=== PATIENT | male | born 1955 | race African-American/Black ===

== ENCOUNTER 2024-09-03 11:27 | Inpatient (IN) | payer MEDICAID, SELFPAY ==
[2024-09-03] VITALS (13 sets, daily range): BP systolic 106–126; BP diastolic 81–94; PULSE 61–90; RESP 14–31; TEMP 36.3–36.7; O2SAT 89–100; BMI 30.4; BMI 29.3
--- NOTE | 2024-09-03 11:59 | RAD_ITS ---
EXAM: XR Chest, 2 Views CLINICAL INDICATION: SOB TECHNIQUE: Frontal and lateral views of the chest. COMPARISON: No relevant prior studies available. FINDINGS: LUNGS AND PLEURAL SPACES: Right pleural effusion. No consolidation. No pneumothorax. HEART: Cardiomegaly without overt failure. MEDIASTINUM: Unremarkable. Normal mediastinal contour. BONES/JOINTS: Unremarkable. No acute fracture. RAD/Chest PA and Lateral IMPRESSION: 1. Cardiomegaly without overt failure. 2. Right pleural effusion. Reading Location[facility]
--- NOTE | 2024-09-03 12:13 | ED.VIS.DYS ---
HPI <ORION Balderas - Last Filed: 09/03/24 14:58> History of Present Illness Chief Complaint: Shortness of Breath Narrative Narrative: Patient presenting today from a SNF due to dyspnea and bilateral lower extremity edema over the last several days. He denies any known history of CHF. He has a PMH of schizophrenia, COPD, CVA, PVD, T2DM, HTN, HLD, and bipolar disorder. He denies recent illness, fevers, chills, chest pain, abdominal pain, nausea, and vomiting. He does have a chronic right-sided facial droop as a result of his stroke. He denies any history of blood clots or recent surgery/travel/immobilization. PFS <ORION Balderas - Last Filed: 09/03/24 14:58> [facility] Medical History Alcohol use with alcohol-induced persisting dementia COPD (chronic obstructive pulmonary disease) PVD (peripheral vascular disease) Type 2 diabetes mellitus with diabetic peripheral angiopathy without gangrene Refractive amblyopia HTN (hypertension) Glaucoma Cardiomyopathy due to drug and external agent Hyperlipidemia Vitamin D deficiency Hydrocele Gastro-esophageal reflux disease without esophagitis Personal history of traumatic brain injury Cannabis abuse Cocaine dependence Alcohol abuse Bipolar disorder Schizoaffective disorder Schizophrenia Transient cerebral ischemic attack, unspecified Home Medications ?Medication ?Instructions ?Recorded ?Last Taken ?Type acetaminophen 325 mg tablet 650 mg PO Q4H PRN fever or pain 09/03/24 Unknown History (Tylenol) albuterol sulfate 90 mcg/actuation 2 puff inhalation Q4H PRN sob 09/03/24 Unknown History aerosol inhaler aluminum-magnesium hydroxide 200 30 ml PO Q6H PRN heartburn 09/03/24 Unknown History mg-200 mg/5 mL oral suspension (MAG-AL) aspirin 81 mg capsule 81 mg PO DAILY prophylaxis 09/03/24 Unknown History atorvastatin 40 mg tablet (Lipitor) 40 mg PO DAILY cholesterol 09/03/24 Unknown History calcium phosphate,dibasic 77 tab PO abnormal labs 09/03/24 Unknown History mg-vitamin D3 400 unit tablet diphenhydramine HCl 25 mg tablet 25 mg PO Q12H PRN PRN anxiety and 09/03/24 Unknown History (Benadryl Allergy) insomnia divalproex 500 mg tablet,delayed 1,000 mg PO DAILY 09/03/24 Unknown History release (Depakote) schizoaffective/bipolar magnesium hydroxide 400 mg/5 mL 30 ml PO BID PRN constipation 09/03/24 Unknown History oral suspension (Milk of Magnesia) olanzapine 20 mg tablet (Zyprexa) 20 mg PO BID schizophrenia 09/03/24 Unknown History paliperidone palmitate 234 mg/1.5 234 mg IM Q30D schizophrenia 09/03/24 Unknown History mL intramuscular syringe (Invega Sustenna) pantoprazole 40 mg tablet,delayed 40 mg PO QHS gerd 09/03/24 Unknown History release (Protonix) Allergy/AdvReac Type Severity Reaction Status Date / Time No Known Allergies Allergy Verified 09/03/24 11:29 Social History Smoking Status: Unknown if ever smoked ROS <ORION Balderas - Last Filed: 09/03/24 14:58> ROS ED Constitutional Constitutional ED: Denies chills or fever(s) Cardiovascular Cardiovascular: Denies chest pain Respiratory/Chest Respiratory/Chest: Reports dyspnea; Denies cough Gastrointestinal Gastrointestinal: Denies abdominal pain, nausea or vomiting Musculoskeletal Musculoskeletal: Denies arthralgias or myalgias Integumentary Denies rash Neurologic Neurologic: Reports weakness; Denies confusion EXAM <ORION Balderas - Last Filed: 09/03/24 14:58> Physical Exam Const Vital Signs: 09/03/24 11:29 09/03/24 11:34 09/03/24 11:59 Temperature 97.9 F 97.9 F Temperature Source Oral Oral Pulse Rate 83 Respiratory Rate 31 H 31 H Respiratory Effort Respiratory Depth Respiratory Pattern Blood Pressure 109/81 H 109/81 H Blood Pressure Mean 90 90 Pulse Ox 89 97 100 Oxygen Delivery Method Room Air Nasal Cannula Nasal Cannula Oxygen Flow Rate (L/min) 2 2 09/03/24 12:07 09/03/24 13:05 09/03/24 14:00 Temperature 98.0 F 98 F Temperature Source Temporal Oral Pulse Rate 61 76 Respiratory Rate 18 14 Respiratory Effort Short of Breath Respiratory Depth Shallow Respiratory Pattern Apnea Blood Pressure 109/81 H 120/94 H Blood Pressure Mean 90 102 Pulse Ox 100 100 Oxygen Delivery Method Nasal Cannula Nasal Cannula Nasal Cannula Oxygen Flow Rate (L/min) 2 2 09/03/24 14:26 09/03/24 15:08 Temperature 98 F 97.4 F L Temperature Source Oral Pulse Rate 80 76 Respiratory Rate 17 15 Respiratory Effort Respiratory Depth Respiratory Pattern Blood Pressure 120/94 H 116/89 H Blood Pressure Mean 102 98 Pulse Ox 100 99 Oxygen Delivery Method Nasal Cannula Oxygen Flow Rate (L/min) 2 Positive well nourished, well developed and no apparent distress General Appearance ED: well developed HEENT Reports normocephalic and head/scalp atraumatic Mouth ED: Yes moist mucous membranes normal Eyes PERRL and EOMs intact bilaterally Neck full ROM and supple Chest Wall inspection of chest normal Resp normal respiratory effort and clear to auscultation bilaterally Cardio regular rate and regular rhythm GI soft to palpation, non-tender, non-distended and no masses Back/Spine normal ROM and normal to inspection Extremity full ROM Extremity Narrative: Patient in [facility], he does have bilateral 1+ pitting edema that is equal to the lower extremities Neuro oriented x3, CN's II-XII intact bilaterally, moves all extremities, no focal motor deficits and no sensory deficits noted Neuro Narrative: Patient is alert and oriented x 3, he is aware that he is in the [place] emergency department Sensorium / Orientation: awake and alert Psych mental status grossly normal and thought process normal Skin no rashes or lesions noted and no wounds <Dr. Fernando Reinoso, DO - Last Filed: 09/03/24 17:15> Physical Exam Const Vital Signs: 09/03/24 11:29 09/03/24 11:34 09/03/24 11:59 Temperature 97.9 F 97.9 F Temperature Source Oral Oral Pulse Rate 83 Respiratory Rate 31 H 31 H Respiratory Effort Respiratory Depth Respiratory Pattern Blood Pressure 109/81 H 109/81 H Blood Pressure Mean 90 90 Pulse Ox 89 97 100 Oxygen Delivery Method Room Air Nasal Cannula Nasal Cannula Oxygen Flow Rate (L/min) 2 2 09/03/24 12:07 09/03/24 13:05 09/03/24 14:00 Temperature 98.0 F 98 F Temperature Source Temporal Oral Pulse Rate 61 76 Respiratory Rate 18 14 Respiratory Effort Short of Breath Respiratory Depth Shallow Respiratory Pattern Apnea Blood Pressure 109/81 H 120/94 H Blood Pressure Mean 90 102 Pulse Ox 100 100 Oxygen Delivery Method Nasal Cannula Nasal Cannula Nasal Cannula Oxygen Flow Rate (L/min) 2 2 09/03/24 14:26 09/03/24 15:08 Temperature 98 F 97.4 F L Temperature Source Oral Pulse Rate 80 76 Respiratory Rate 17 15 Respiratory Effort Respiratory Depth Respiratory Pattern Blood Pressure 120/94 H 116/89 H Blood Pressure Mean 102 98 Pulse Ox 100 99 Oxygen Delivery Method Nasal Cannula Oxygen Flow Rate (L/min) 2 MDM <ORION Balderas - Last Filed: 09/03/24 14:58> [facility] Narrative Medical decision making narrative: Patient presenting today due to shortness of breath and leg edema that has been ongoing for several days. He denies any known history of CHF. He has a low modified Mariposa score and low Wells score, low suspicion for PE. He is somewhat somnolent on exam. His pulse ox dropped to 89% and he was placed on 2 L supplemental O2. CHF workup obtained, his CBC is largely unremarkable, creatinine 1.23, BNP elevated at 4091, initial troponin somewhat elevated at 31, negative delta. UA negative for UTI. Chest x-ray shows cardiomegaly with a right sided pleural effusion. He was given IV Lasix. I will speak with hospitalist for workup given new onset CHF and he will be admitted in stable condition. Lab Data Attestation: I reviewed the patient's lab results. Labs: Laboratory Results - last 24 hr 09/03/24 09/03/24 09/03/24 11:58 13:20 14:10 WBC 4.8 RBC 4.72 Hgb 13.3 Hct 41.7 MCV 88.3 MCH 28.2 MCHC 31.9 L RDW Std Deviation 54.2 H RDW Coeff of Skinny 16.9 H Plt Count 187 MPV 13.5 H Immature Gran % (Auto) 0.200 Neut % (Auto) 47.9 Lymph % (Auto) 41.0 [place] % (Auto) 9.3 Eos % (Auto) 1.2 Baso % (Auto) 0.4 Absolute Neuts (auto) 2.3 Absolute Lymphs (auto) 1.98 Nucleated RBC % 0 Sodium 144 Potassium 4.5 Chloride 112 H Carbon Dioxide 21.4 Anion Gap 10 BUN 25 H Creatinine 1.23 H Estim Creat Clear Calc 68.07 Est GFR (MDRD) Non-Af 63 BUN/Creatinine Ratio 20.0 Glucose 84 Calcium 8.7 Troponin T High Sens 31 H Troponin T Hi Sens 2 Hr 26 H NT pro BNP II 4091 H Urine Color Yellow Urine Clarity Clear Urine pH 5.0 Ur Specific [place] 1.025 Urine Protein 30 H Urine Glucose (UA) Normal Urine Ketones 5 H Urine Occult Blood 10 H Urine Nitrite Negative Urine Bilirubin 1 H Urine Urobilinogen 4 H Ur Leukocyte Esterase Negative Urine RBC 0-5 SEEN Urine WBC 0 SEEN Ur Squamous Epith Cells 0 SEEN Urine Bacteria 0 SEEN Urine Mucus 0 SEEN Radiography X-Ray: Read by ED Physician Diagnostic Testing: Clinical Impression(s) from Imaging Studies Chest X-Ray 09/03/24 11:59 IMPRESSION: 1. Cardiomegaly without overt failure. 2. Right pleural effusion. Reading Location: [facility] EKG Initial EKG: Comments: 72 bpm, normal sinus rhythm, no ST elevation, T wave inversions leads I, V3 through V6 <Dr. Fernando Reinoso, DO - Last Filed: 09/03/24 17:15> MDM History & Record Review Additional record(s) reviewed:: No prior records Lab Data Labs: Laboratory Results - last 24 hr 09/03/24 09/03/24 09/03/24 11:58 13:20 14:10 WBC 4.8 RBC 4.72 Hgb 13.3 Hct 41.7 MCV 88.3 MCH 28.2 MCHC 31.9 L RDW Std Deviation 54.2 H RDW Coeff of Skinny 16.9 H Plt Count 187 MPV 13.5 H Immature Gran % (Auto) 0.200 Neut % (Auto) 47.9 Lymph % (Auto) 41.0 [place] % (Auto) 9.3 Eos % (Auto) 1.2 Baso % (Auto) 0.4 Absolute Neuts (auto) 2.3 Absolute Lymphs (auto) 1.98 Nucleated RBC % 0 Sodium 144 Potassium 4.5 Chloride 112 H Carbon Dioxide 21.4 Anion Gap 10 BUN 25 H Creatinine 1.23 H Estim Creat Clear Calc 68.07 Est GFR (MDRD) Non-Af 63 BUN/Creatinine Ratio 20.0 Glucose 84 Calcium 8.7 Troponin T High Sens 31 H Troponin T Hi Sens 2 Hr 26 H NT pro BNP II 4091 H Urine Color Yellow Urine Clarity Clear Urine pH 5.0 Ur Specific [place] 1.025 Urine Protein 30 H Urine Glucose (UA) Normal Urine Ketones 5 H Urine Occult Blood 10 H Urine Nitrite Negative Urine Bilirubin 1 H Urine Urobilinogen 4 H Ur Leukocyte Esterase Negative Urine RBC 0-5 SEEN Urine WBC 0 SEEN Ur Squamous Epith Cells 0 SEEN Urine Bacteria 0 SEEN Urine Mucus 0 SEEN Radiography Diagnostic Testing: Clinical Impression(s) from Imaging Studies Chest X-Ray 09/03/24 11:59 IMPRESSION: 1. Cardiomegaly without overt failure. 2. Right pleural effusion. Reading Location: [facility] Treatment and Re-Evaluation :: I have personally performed a face to face assessment of the patient and have reviewed the MARYLIN Note. I performed a substantive portion of the visit including all aspects of the following. My bernstein findings include: History: Patient presents with shortness of breath that has been getting worse over the past 2 weeks. Patient states it is gradually getting worse. Patient states nothing makes it better. Patient states nothing makes it worse. Patient denies any fevers or chills. Patient denies any chest pain or cough. Patient denies any sore throat or rhinorrhea. Patient does admit to some increased swelling in his legs. Patient states he feels weak all over. Exam: Vital signs are stable. Patient is afebrile. Patient is in no acute distress. Patient has mild hypoxia with oxygen saturation of 89% on room air. Oral mucosa is pink and moist. Neck is supple. Trachea is midline. There is no JVD. Heart with regular rate and rhythm. Lungs are diminished bilaterally. There is good respiratory effort noted. Abdomen is soft. Bowel sounds are normal. There is no tenderness. Extremities are intact x 4. There is 2+ edema of the lower extremities bilaterally. Cranial nerves II through XII are intact. There are no focal motor or sensory deficits. Medical Decision Making: Differential diagnosis includes congestive heart failure, pneumonia, pneumothorax, electrolyte abnormality, cardiac dysrhythmia, and cardiac ischemia. EKG will be obtained to assess for cardiac dysrhythmia and cardiac ischemia. Chest x-ray will be obtained to assess for congestive heart failure, pneumonia and pneumothorax. CBC will be obtained to assess for leukocytosis and anemia. Basic metabolic profile will be obtained to assess for electrolyte abnormalities and renal function. BNP will be obtained to assess for congestive heart failure. High-sensitivity troponin will be obtained to assess for cardiac ischemia. 2-hour repeat high-sensitivity troponin will be obtained to assess for ongoing cardiac ischemia. EKG was obtained. On my independent interpretation, it shows normal sinus rhythm with a rate of 72. There are no acute ST or T wave changes noted. Chest x-ray was obtained. There are 2 views. On my independent interpretation, there is vascular congestion. There is cardiomegaly noted. There is a right pleural effusion. Radiologist also interpreted the x-rays and agrees. CBC was reviewed and was within normal limits. Basic metabolic profile was reviewed. BUN was 25 and creatinine was 1.23. There are no previous results for comparison. BNP was reviewed and was elevated at 4091. Initial high-sensitivity troponin was reviewed and was slightly elevated at 31. 2-hour repeat high-sensitivity troponin was reviewed and was improved at 26. Urinalysis was reviewed. There is no evidence of urinary tract infection or hematuria. Patient was given a dose of Lasix here. Case was discussed with the hospitalist. She will admit the patient to her service. Patient understood and was agreeable with the plan. All questions were answered. Discharge Plan Dx/Rx/DC Orders Clinical Impression: New onset of congestive heart failure, Hypoxia, Pleural effusion Disposition Disposition: Acute Care Hospital [facility] Discharge Date/Time: 09/03/24 16:04
[2024-09-03 12:23] LABS: Absolute Lymphocyte Count 1.98 X10^3/uL (0.83-4.51); Absolute Neutrophil Count 2.3 X10^3/uL (2.0-7.7); Basophil# 0.02 X10^3/uL; Basophil% 0.4 % (0-1); Eosinophil# 0.06 X10^3/uL; Eosinophils% 1.2 % (0-5); Hematocrit 41.7 % (40-54); Hemoglobin 13.3 g/dL (13.0-16.5); Lymphocyte # 1.98 X10^3/ul (0.83-4.51); Mean Corp Hgb Conc 31.9 g/dL (32-36); Mean Corpuscular Hgb 28.2 pg (27.0-32.0); Mean Corpuscular Volume 88.3 fL (80-94); Mean Platelet Vol. 13.5 fl (6.2-12.0); Monocyte# 0.45 X10^3/uL; Monocyte% 9.3 % (0-10); NRBC Flagged by Analyzer 0 % (0-5); Neutrophil # 2.31 X10^3/uL (2.7-7.7); Neutrophil % 47.9 % (47-70); Platelet Count 187 K/mm3 (150-450); RBC Distribution Width CV 16.9 % (11.6-14.6); RBC Distribution Width SD 54.2 fl (35.1-43.9); Red Blood Count 4.72 M/mm3 (4.6-6.2); White Blood Count 4.8 K/mm3 (4.4-11.0)
--- NOTE | 2024-09-03 12:30 | ED.RN ---
THIS NURSE ATTEMPTED TO REACH [employer]ARRERA REYES, PTS LEGAL GUARDIAN FOR CONSENT. LEFT A GENERIC VOICEMAIL WITHOUT PT INFO TO CALL US BACK FOR LEGAL GUARDIAN PURPOSES.
[2024-09-03 12:48] LABS: Troponin T High Sensitivity 31 ng/L (<=22)
[2024-09-03 13:06] LABS: Anion Gap 10 (5-15); BUN 25 mg/dL (4-19); Calcium,Total 8.7 mg/dL (7.6-11.0); Carbon Dioxide 21.4 mmol/L (21.0-32.0); Chloride 112 mmol/L (98-108); Creatinine, Serum 1.23 mg/dL (0.70-1.20); EST Glomerular Filtration Rate 63 (>60); Estimated Creatinine Clearance 68.07 ml/min (50-250); Glucose 84 mg/dL (70-99); Potassium 4.5 mmol/L (3.3-5.1); Pro- Brain NATRIURETIC PEPTIDE 4091 pg/mL (<=900); Sodium Level 144 mmol/L (133-145)
[2024-09-03 13:25] LABS: Bacteria 0 SEEN /hpf (None Seen); Mucous, Urine 0 SEEN /hpf (<or=2+); Squamous Epithelial Cells - UA 0 SEEN /hpf (0-5); White Blood Cells 0 SEEN /hpf (0-5)
[2024-09-03 13:27] LABS: Color, Urine Yellow (Yellow); Glucose, Dipstick Normal (Normal); Ketone-Dipstick 5 mg/dl (Negative); Leukocyte Esterase-Dipstick Negative /ul (Negative); Nitrite-Dipstick Negative (Negative); Occult Blood-Urine 10 /ul (Negative); Protein-Dipstick 30 mg/dl (Negative); Specific Gravity, Urine 1.025 (1.002-1.030); Urine Clarity Clear (Clear); Urine Urobilinogen 4 mg/dl (Normal)
[2024-09-03 13:46] LABS: Urine Bilirubin Dipstick 1 mg/dL (Negative)
[2024-09-03 13:50] LABS: Red Blood Cells-Urine 0-5 SEEN /hpf (0-5)
[2024-09-03] MEDS: Furosemide 40 MG/4 ML Vial IV (14:24)
[2024-09-03 14:47] LABS: Troponin T High Sens 2 HR 26 ng/L (<=22)
--- NOTE | 2024-09-03 14:55 | ED.RN ---
Rebecca Avelar requesting an update on patient. Rebecca informed patient will be admitted to hospital
--- NOTE | 2024-09-03 15:56 | PCM.HP.STD ---
HPI - General General Date of Admission: 09/03/24 Date of Service: 09/03/24 Chief Complaint: MATA HPI Narrative TOM MOY, is a 69-year-old male history of diabetes, COPD, GERD, CVA, schizophrenia presented to [facility] ED 09/03/2024 for increasing dyspnea and bilateral lower extremity edema over the past several days. No history of CHF that he knows of. Does have chronic right-sided facial droop as result of a previous stroke. Denies any chest pain. In the ED temperature 97.9 with blood pressure 109/81, respiratory rate 31 and patient 89% on room air so patient was placed on 2 L. Chest x-ray with cardiomegaly without overt failure and right-sided pleural effusion. CBC with white blood cell count 4.8 and hemoglobin 13.3, BNP however found to be 4091 and a troponin of 31. BMP shows creatinine of 1.23 without previous values for comparison. Hospitalist contacted for admission for concerns for new onset heart failure. Patient evaluated at bedside, patient somewhat slow to respond but is awake and alert, reports increased shortness of breath and lower extremity edema over the past week with no chest pain, no productive cough, reports some urinary hesitancy without other urinary complaints, ROS otherwise negative. [facility] Medical History Alcohol use with alcohol-induced persisting dementia COPD (chronic obstructive pulmonary disease) PVD (peripheral vascular disease) Type 2 diabetes mellitus with diabetic peripheral angiopathy without gangrene Refractive amblyopia HTN (hypertension) Glaucoma Cardiomyopathy due to drug and external agent Hyperlipidemia Vitamin D deficiency Hydrocele Gastro-esophageal reflux disease without esophagitis Personal history of traumatic brain injury Cannabis abuse Cocaine dependence Alcohol abuse Bipolar disorder Schizoaffective disorder Schizophrenia Transient cerebral ischemic attack, unspecified Home Medications ?Medication ?Instructions ?Recorded ?Last Taken ?Type acetaminophen 325 mg tablet 650 mg PO Q4H PRN fever or pain 09/03/24 Unknown History (Tylenol) albuterol sulfate 90 mcg/actuation 4 puff inhalation Q4H PRN 09/03/24 Unknown History aerosol inhaler (Ventolin HFA) shortness of breath or wheezing aluminum-magnesium hydroxide 200 30 ml PO Q6H PRN heartburn 09/03/24 Unknown History mg-200 mg/5 mL oral suspension (MAG-AL) aspirin 81 mg capsule 81 mg PO DAILY 09/03/24 Unknown History atorvastatin 40 mg tablet (Lipitor) 40 mg PO DAILY 09/03/24 Unknown History calcium phosphate,dibasic 77 tab PO 09/03/24 Unknown History mg-vitamin D3 400 unit tablet diphenhydramine HCl 25 mg tablet 25 mg PO Q12H PRN PRN anxiety and 09/03/24 Unknown History (Benadryl Allergy) insomnia divalproex 500 mg tablet,delayed 1,000 mg PO DAILY 09/03/24 Unknown History release (Depakote) magnesium hydroxide 400 mg/5 mL 30 ml PO BID PRN constipation 09/03/24 Unknown History oral suspension (Milk of Magnesia) olanzapine 20 mg tablet (Zyprexa) 20 mg PO BID 09/03/24 Unknown History paliperidone 1.5 mg 3 mg PO DAILY 09/03/24 Unknown History tablet,extended release 24 hr pantoprazole 40 mg tablet,delayed 40 mg PO QHS 09/03/24 Unknown History release (Protonix) Allergy/AdvReac Type Severity Reaction Status Date / Time No Known Allergies Allergy Verified 09/03/24 11:29 Social History Smoking Status: Current every day smoker tobacco type: cigarettes ROS ROS Narrative General: Denies fever/chills HENT: Denies headache, denies stuffy nose, denies sore throat EYES: Denies changes in vision Resp: Denies cough, increasing SOB Cardiac: Denies chest pain GI: Denies abdominal pain, denies changes in bowel, denies nausea/vomiting : Denies changes in urination Extremity: Increased LE swelling MSK: Denies weakness Neuro: Denies any numbness/tingling Heme: Denies any bleeding or bruising Skin: Denies rashes Psychiatric: No complaints voiced Vital Signs Vital Signs Vital Signs: 09/03/24 11:29 09/03/24 11:34 09/03/24 11:59 Temperature 97.9 F 97.9 F Temperature Source Oral Oral Pulse Rate 83 Respiratory Rate 31 H 31 H Respiratory Effort Respiratory Depth Respiratory Pattern Blood Pressure 109/81 H 109/81 H Blood Pressure Mean 90 90 Pulse Ox 89 97 100 Oxygen Delivery Method Room Air Nasal Cannula Nasal Cannula Oxygen Flow Rate (L/min) 2 2 09/03/24 12:07 09/03/24 13:05 09/03/24 14:00 Temperature 98.0 F 98 F Temperature Source Temporal Oral Pulse Rate 61 76 Respiratory Rate 18 14 Respiratory Effort Short of Breath Respiratory Depth Shallow Respiratory Pattern Apnea Blood Pressure 109/81 H 120/94 H Blood Pressure Mean 90 102 Pulse Ox 100 100 Oxygen Delivery Method Nasal Cannula Nasal Cannula Nasal Cannula Oxygen Flow Rate (L/min) 2 2 09/03/24 14:26 09/03/24 15:08 Temperature 98 F 97.4 F L Temperature Source Oral Pulse Rate 80 76 Respiratory Rate 17 15 Respiratory Effort Respiratory Depth Respiratory Pattern Blood Pressure 120/94 H 116/89 H Blood Pressure Mean 102 98 Pulse Ox 100 99 Oxygen Delivery Method Nasal Cannula Oxygen Flow Rate (L/min) 2 Weight Weight: 102 kg Body Mass Index (BMI) 30.4 Physical Exam Narrative General: Alert, oriented, no apparent distress HEENT: Atraumatic, normocephalic Eyes: Anicteric, normal conjunctiva, extraocular movements grossly intact Neck: Supple Respiratory: Crackles right greater than left, diminished with bases Cardiovascular: Regular rate and rhythm GI: Soft, nontender, nondistended Extremities: Patient with stockings on but does have 1+ bilateral lower extremity pitting edema Musculoskeletal: Moving all extremities Neuro: No overt focal neurological deficits Skin: No rashes appreciated Psych: Cooperative Results Lab / Micro Data 09/03/24 11:58 09/03/24 11:58 Labs: Laboratory Results - last 24 hr 09/03/24 11:58: WBC 4.8, RBC 4.72, Hgb 13.3, Hct 41.7, MCV 88.3, MCH 28.2, MCHC 31.9 L, RDW Std Deviation 54.2 H, RDW Coeff of Skinny 16.9 H, Plt Count 187, MPV 13.5 H, Immature Gran % (Auto) 0.200, Neut % (Auto) 47.9, Lymph % (Auto) 41.0, [place] % (Auto) 9.3, Eos % (Auto) 1.2, Baso % (Auto) 0.4, Absolute Neuts (auto) 2.3, Absolute Lymphs (auto) 1.98, Nucleated RBC % 0, Sodium 144, Potassium 4.5, Chloride 112 H, Carbon Dioxide 21.4, Anion Gap 10, BUN 25 H, Creatinine 1.23 H, Estim Creat Clear Calc 68.07, Est GFR (MDRD) Non-Af 63, BUN/Creatinine Ratio 20.0, Glucose 84, Calcium 8.7, Troponin T High Sens 31 H, NT pro BNP II 4091 H 09/03/24 13:20: Urine Color Yellow, Urine Clarity Clear, Urine pH 5.0, Ur Specific [place] 1.025, Urine Protein 30 H, Urine Glucose (UA) Normal, Urine Ketones 5 H, Urine Occult Blood 10 H, Urine Nitrite Negative, Urine Bilirubin 1 H, Urine Urobilinogen 4 H, Ur Leukocyte Esterase Negative, Urine RBC 0-5 SEEN, Urine WBC 0 SEEN, Ur Squamous Epith Cells 0 SEEN, Urine Bacteria 0 SEEN, Urine Mucus 0 SEEN 09/03/24 14:10: Troponin T Hi Sens 2 Hr 26 H Imaging Radiology Impression Chest X-Ray 09/03/24 11:59 IMPRESSION: 1. Cardiomegaly without overt failure. 2. Right pleural effusion. Reading Location: [facility] Assessment & Plan Assessment/Plan (1) New onset of congestive heart failure: PLAN: Plan # Hypoxia secondary to concern for new onset heart failure -Admit to telemetry -proBNP 4091 -CXR with right pleural effusion and cardiomegaly -Continue IV lasix - No echo available in our system, check echocardiogram -Daily weights, I's and O's -heart healthy diet # Elevated troponin - Suspect secondary #1, patient has no chest pain complaints whatsoever and troponin was 31 and down trended to 26 - Does have some T wave changes but with low troponin downtrended and no chest pain will check echocardiogram - If any wall motion abnormalities on echocardiogram or further concern can consider cardiology consult #Hx COPD -Continue home inhalers -Incentive spirometer #Type 2 diabetes mellitus -Glucose checks and sliding scale insulin #GERD -Continue PPI # Schizophrenia - Continue patient's home medications # History of CVA - Continue home medications #DVT ppx: Lovenox subq Jessica Davila MD Charges/Coding Visit Charges Inpatient E&M: 46949 Init Hosp L2
--- NOTE | 2024-09-03 16:14 | ECHOD_ITS ---
Reason For Study Reason For Study: CHF Procedure This was a 2D Doppler, Color Flow transthoracic echocardiogram. Exam performed portable in patient room. Left Ventricle Normal size and thickness. Severe global LV systolic dysfunction. Estimated LVEF 20-25%. Stage I diastolic dysfunction. Right Ventricle Normal RV size. Mild global right ventricular systolic dysfunction. Atria There is moderate biatrial dilatation. Mitral Valve Mild (1+) mitral valve insufficiency. Tricuspid Valve Moderate (2+) tricuspid valve insufficiency. Right ventricular systolic pressure estimated to be 39 mmHg. Aortic Valve Trisinus/trileaflet aortic valve. Aortic sclerosis, no stenosis. Mild (1+) aortic valve insufficiency. Pulmonic Valve The pulmonic valve is not well visualized. Great Vessels Normal sized aortic root. Pericardium/Pleural Trivial pericardial effusion. MMode/2D Measurements & Calculations LVIDd: 5.4 cm IVSd: 0.89 cm Ao root diam: 3.4 cm LVIDs: 4.7 cm LVPWd: 0.95 cm LA dimension: 5.1 cm RVDd: 4.6 cm FS: 14.1 % LAV(MOD-bp): 90.0 ml LVAd ap4: 48.6 cm2 LVAd ap2: 49.1 cm2 LAV(MOD-bp) Indexed: 40.3 ml/m2 LVLd ap4: 9.9 cm LVLd ap2: 10.0 cm LAV(MOD-sp2): 104.0 ml EDV(MOD-sp4): 200.2 ml EDV(MOD-sp2): 200.3 ml LAV(MOD-sp4): 77.4 ml EDV(sp4-el): 203.0 ml EDV(sp2-el): 205.1 ml LVAs ap4: 39.9 cm2 LVAs ap2: 41.6 cm2 LVLs ap4: 9.3 cm LVLs ap2: 9.3 cm ESV(MOD-sp4): 146.7 ml ESV(MOD-sp2): 155.3 ml ESV(sp4-el): 145.7 ml ESV(sp2-el): 157.9 ml EF(MOD-sp4): 26.7 % EF(MOD-sp2): 22.4 % EF(sp4-el): 28.2 % SV(MOD-sp4): 53.5 ml SV(MOD-sp2): 44.9 ml SV(sp4-el): 57.3 ml SI(MOD-sp4): 23.9 ml/m2 SI(MOD-sp2): 20.1 ml/m2 LA A4 area: 25.1 cm2 LA dimension(2D): 3.8 cm RA A4 area: 21.9 cm2 TAPSE: 1.8 cm Time Measurements MV dec time: 0.19 sec Doppler Measurements & Calculations MV E max axel: 69.5 cm/sec Lat Peak E' Axel: 8.2 cm/sec Med Peak E' Aexl: 6.0 cm/sec MV A max axel: 47.2 cm/sec E/E' lat: 8.4 E/E' med: 11.6 MV E/A: 1.5 Ao V2 max: 131.2 cm/sec AI max axel: 358.4 cm/sec MV dec slope: 367.7 cm/sec2 Ao max P.9 mmHg AI max P.4 mmHg Ao V2 mean: 95.9 cm/sec Ao mean P.2 mmHg AI dec slope: 186.1 cm/sec2 Ao V2 VTI: 26.0 cm AI P1/2t: 564.2 msec AV (velocity ratio): 0.86 LV V1 max: 122.2 cm/sec PA V2 max: 90.9 cm/sec TR max axel: 246.1 cm/sec LV V1 max P.0 mmHg TR max P.2 mmHg LV V1 mean P.5 mmHg LV V1 mean: 87.7 cm/sec LV V1 VTI: 22.4 cm ECHO/Echo Complete Interpretation Summary Severe global LV systolic dysfunction. Estimated LVEF 20-25%. Stage I diastolic dysfunction. Mild global right ventricular systolic dysfunction. There is moderate biatrial dilatation. Mild (1+) mitral valve insufficiency. Moderate (2+) tricuspid valve insufficiency. Right ventricular systolic pressure estimated to be 39 mmHg. Mild (1+) aortic valve insufficiency. Ordering Physician: Jessica Davila Referring Physician: Fernando Reinoso Performed By: Fatmata White RDCS
[2024-09-03 17:31] LABS: Ammonia 10.1 umol/L (16-60); Valproic Acid (Depakene) Level 46 ug/mL (50-100)
[2024-09-03 17:32] LABS: Magnesium 1.9 mg/dL (1.5-2.2)
[2024-09-03] MEDS: Pantoprazole Sodium 40 MG Tablet PO (20:00)
[2024-09-03] MEDS: MELATONIN 10 MG TABLET PO (20:00)
[2024-09-03] MEDS: OLANZapine 10 MG Tablet 20 MG PO (20:00)
[2024-09-03] MEDS: Acetaminophen 325 MG Tablet 650 MG PO (20:00)
[2024-09-03 20:07] LABS: Bedside Glucose 71 mg/dL (74-106)
[2024-09-03] MEDS: Lidocaine Jelly 2% 20 ML Syringe (URO-JET) 1 APPLIC TOPICAL (21:52)
--- NOTE | 2024-09-03 22:11 | NURSING ---
16F 10cc catheter replaced with 20F 30cc catheter. Urine return noted prior to balloon inflation, but no urine post inflation. Irrigation attempted with fluid returning around catheter tube. Catheter repositioned and reinflated. Appears to be placed correctly. Will wait for 1-2 hours, assess out put, bladder scan and determine next steps if needed. Pt tolerated with moderate complaints. UroJet used. Saba cares, Pt positioned for comfort, call light in reach, bed alarm on zone one for safety. Support and education provided, requires frequent reenforcement.
[2024-09-03 22:25] LABS: Bedside Glucose 127 mg/dL (74-106)
[2024-09-04 03:45] VITALS: BP 116/80; PULSE 88; RESP 16; TEMP 36.9; O2SAT 100
[2024-09-04 04:18] VITALS: BMI 28.8
[2024-09-04 06:58] LABS: Bedside Glucose 83 mg/dL (74-106)
[2024-09-04 07:14] LABS: Absolute Lymphocyte Count 1.99 X10^3/uL (0.83-4.51); Absolute Neutrophil Count 3.9 X10^3/uL (2.0-7.7); Basophil# 0.01 X10^3/uL; Basophil% 0.2 % (0-1); Eosinophil# 0.05 X10^3/uL; Eosinophils% 0.8 % (0-5); Hematocrit 34.7 % (40-54); Hemoglobin 11.2 g/dL (13.0-16.5); Lymphocyte # 1.99 X10^3/ul (0.83-4.51); Lymphocyte % 30.2 % (19-41); Mean Corp Hgb Conc 32.3 g/dL (32-36); Mean Corpuscular Hgb 27.9 pg (27.0-32.0); Mean Corpuscular Volume 86.3 fL (80-94); Mean Platelet Vol. 12.7 fl (6.2-12.0); Monocyte# 0.67 X10^3/uL; Monocyte% 10.2 % (0-10); NRBC Flagged by Analyzer 0 % (0-5); Neutrophil # 3.86 X10^3/uL (2.7-7.7); Neutrophil % 58.3 % (47-70); Platelet Count 162 K/mm3 (150-450); RBC Distribution Width CV 16.7 % (11.6-14.6); RBC Distribution Width SD 52.5 fl (35.1-43.9); Red Blood Count 4.02 M/mm3 (4.6-6.2); White Blood Count 6.6 K/mm3 (4.4-11.0)
--- NOTE | 2024-09-04 08:07 | PN.HOSP_ITS ---
Reason for Visit Reason for Visit: Diagnoses Heart failure, unspecified (09/03/24) Subjective Subjective Breathing better. Objective Data Objective Data Vital Signs: Vital Signs Temp Pulse Resp BP Pulse Ox O2 Del Method O2 Flow Rate 36.9 C 88 16 116/80 100 Room Air 2 09/04/24 03:45 09/04/24 03:45 09/04/24 03:45 09/04/24 03:45 09/04/24 03:45 09/04/24 03:45 09/03/24 16:32 Oxygen Flow Rate (L/min) 2 Oxygen Delivery Method Room Air Weight: 96.4 kg Body Mass Index (BMI) 28.8 Intake & Output: Intake and Output for Last 24 Hours 09/02/24 09/03/24 09/04/24 23:59 23:59 23:59 Intake Total 400 / 400 Output Total 1550 / 1600 200 / 200 Balance -1150 / -1200 -200 / -200 Lab / Micro Data 09/04/24 06:18 09/04/24 06:18 Labs: Laboratory Results - last 24 hr 09/03/24 11:58: WBC 4.8, RBC 4.72, Hgb 13.3, Hct 41.7, MCV 88.3, MCH 28.2, MCHC 31.9 L, RDW Std Deviation 54.2 H, RDW Coeff of Skinny 16.9 H, Plt Count 187, MPV 13.5 H, Immature Gran % (Auto) 0.200, Neut % (Auto) 47.9, Lymph % (Auto) 41.0, [place] % (Auto) 9.3, Eos % (Auto) 1.2, Baso % (Auto) 0.4, Absolute Neuts (auto) 2.3, Absolute Lymphs (auto) 1.98, Nucleated RBC % 0, Sodium 144, Potassium 4.5, Chloride 112 H, Carbon Dioxide 21.4, Anion Gap 10, BUN 25 H, Creatinine 1.23 H, Estim Creat Clear Calc 68.07, Est GFR (MDRD) Non-Af 63, BUN/Creatinine Ratio 20.0, Glucose 84, Calcium 8.7, Troponin T High Sens 31 H, NT pro BNP II 4091 H 09/03/24 13:20: Urine Color Yellow, Urine Clarity Clear, Urine pH 5.0, Ur Specific [place] 1.025, Urine Protein 30 H, Urine Glucose (UA) Normal, Urine Ketones 5 H, Urine Occult Blood 10 H, Urine Nitrite Negative, Urine Bilirubin 1 H, Urine Urobilinogen 4 H, Ur Leukocyte Esterase Negative, Urine RBC 0-5 SEEN, Urine WBC 0 SEEN, Ur Squamous Epith Cells 0 SEEN, Urine Bacteria 0 SEEN, Urine Mucus 0 SEEN 09/03/24 14:10: Troponin T Hi Sens 2 Hr 26 H 09/03/24 16:35: POC Glucose 71 L 09/03/24 17:00: Magnesium 1.9, Ammonia 10.1 L, Valproic Acid 46 L 09/03/24 22:07: POC Glucose 127 H 09/04/24 06:18: WBC 6.6, RBC 4.02 L, Hgb 11.2 L, Hct 34.7 L, MCV 86.3, MCH 27.9, MCHC 32.3, RDW Std Deviation 52.5 H, RDW Coeff of Skinny 16.7 H, Plt Count 162, MPV 12.7 H, Immature Gran % (Auto) 0.300, Neut % (Auto) 58.3, Lymph % (Auto) 30.2, M joanne % (Auto) 10.2 H, Eos % (Auto) 0.8, Baso % (Auto) 0.2, Absolute Neuts (auto) 3.9, Absolute Lymphs (auto) 1.99, Nucleated RBC % 0 09/04/24 06:36: POC Glucose 83 Radiography Diagnostic Testing: Radiology Impression Chest X-Ray 09/03/24 11:59 IMPRESSION: 1. Cardiomegaly without overt failure. 2. Right pleural effusion. Reading Location: [facility] Physical Exam Const alert and no apparent distress HEENT head/scalp atraumatic and moist oral mucous membranes Resp normal respiratory effort, no retractions, no use of accessory muscles and clear to auscultation bilaterally Cardio regular rate, regular rhythm, S1 normal heart sound and S2 normal heart sound GI normal to inspection, nondistended, normoactive bowel sounds, soft to palpation, non-tender and non-distended Extremity normal to inspection and full ROM Neuro Sensorium / Orientation: awake and alert Assessment & Plan Assessment/Plan (1) Heart failure: PLAN: Acute heart failure, suspect HFrEF given cardiomegaly on CXR follow up echo on IV furosemide. (2) Elevated troponin: PLAN: Minimal elevation. Doubt primary event, but rather demand ischemia from AECHF Echo ordered. PLAN: Plan Chronic conditions: * COPD: stable * DM2: SSI * schizophrenia: depakote, olanzapine, palperidone * h/o CVA: ASA, statin VTE prophylaxis: LMWH. Charges/Coding Visit Charges Inpatient E&M: 68358 Subs Hosp L2
[2024-09-04 08:15] VITALS: O2SAT 92
[2024-09-04 08:17] LABS: ALB/GLOB Ratio 1.4 RATIO (0.9-2.4); AST(SGOT) 21 U/L (<=37); Alanine Aminotransfer ALT/SGPT 28 U/L (<=46); Albumin, Serum 2.8 g/dL (3.4-4.8); Alkaline Phosphatase 55 U/L (40-129); Anion Gap 8 (5-15); BUN 29 mg/dL (4-19); BUN/Creat Ratio 22.1 RATIO (10-20); Calcium,Total 8.3 mg/dL (7.6-11.0); Carbon Dioxide 23.8 mmol/L (21.0-32.0); Chloride 113 mmol/L (98-108); Cholesterol 87 mg/dL (<=200); Creatinine, Serum 1.33 mg/dL (0.70-1.20); EST Glomerular Filtration Rate 57 (>60); Estimated Creatinine Clearance 61.33 ml/min (50-250); Glucose 85 mg/dL (70-99); High Density Lipoprotein 30 mg/dL; Low Density Lipoprotein Calc. 45 mg/dL; Potassium 4.2 mmol/L (3.3-5.1); Protein, Total 4.8 g/dL (5.9-8.4); Sodium Level 145 mmol/L (133-145); Total Bilirubin 0.61 mg/dL (0.00-1.30); Triglycerides 56 mg/dL; Very Low Density Lipoprotein 11 mg/dL (5-40); cholesterol:hdl ratio screen 2.86
[2024-09-04 08:52] VITALS: BP 97/73; PULSE 85; RESP 16; TEMP 36.7; O2SAT 100
[2024-09-04] MEDS: Enoxaparin 40 MG/0.4 ML Syringe SC (09:00)
[2024-09-04] MEDS: Atorvastatin Calcium 40 MG Tablet PO (09:01)
[2024-09-04] MEDS: OLANZapine 10 MG Tablet 20 MG PO ×2 (09:01→21:09)
[2024-09-04] MEDS: Divalproex Sodium 250 MG Tablet 1000 MG PO (09:01)
[2024-09-04] MEDS: PALIPERIDONE 3 MG TAB.ER.24 PO (09:01)
[2024-09-04] MEDS: Aspirin 81 MG TAB.CHEW PO (09:01)
[2024-09-04] MEDS: 0.9% Saline Lock 10 ML Syringe IV ×2 (09:02→21:09)
[2024-09-04] MEDS: Furosemide 40 MG/4 ML Vial IV (09:47)
--- NOTE | 2024-09-04 09:50 | CASEMGMT ---
Social Work SW reviewed chart, pt is here from [facility]. SW called [facility], spoke w/nurse Liliya. She states pt can return whenever he is ready. SW called pt's guardian, Diego Reid, message left. The document showing Diego Reid is the guardian is in the paper chart. SW faxed updates to [facility], as well as sent them in [facility](in the past they have not been able to access [facility], especially on the weekends). MARK placed a green sheet and transport form on the chart in the event pt can return to [facility] on the weekend. BART Hernandez
[2024-09-04 12:05] LABS: Bedside Glucose 251 mg/dL (74-106)
[2024-09-04] MEDS: Insulin Lispro 100 UNIT/ML INSULN.PEN SC (12:18)
[2024-09-04 15:50] VITALS: BP 108/65; PULSE 96; RESP 18; TEMP 36.8; O2SAT 98
[2024-09-04 18:31] LABS: Bedside Glucose 86 mg/dL (74-106)
[2024-09-04] MEDS: Pantoprazole Sodium 40 MG Tablet PO (21:09)
[2024-09-04 21:50] VITALS: BP 101/68; PULSE 76; RESP 18; TEMP 36.8; O2SAT 96
[2024-09-04 22:22] LABS: Bedside Glucose 103 mg/dL (74-106)
[2024-09-05] VITALS (7 sets, daily range): BP systolic 98–112; BP diastolic 66–80; PULSE 82–90; RESP 18; TEMP 36.5–36.8; O2SAT 95–100; BMI 28.7
[2024-09-05 06:43] LABS: Bedside Glucose 90 mg/dL (74-106)
[2024-09-05] MEDS: Enoxaparin 40 MG/0.4 ML Syringe SC (08:54)
[2024-09-05] MEDS: Aspirin 81 MG TAB.CHEW PO (08:54)
[2024-09-05] MEDS: OLANZapine 10 MG Tablet 20 MG PO (08:54)
[2024-09-05] MEDS: Atorvastatin Calcium 40 MG Tablet PO (08:54)
[2024-09-05] MEDS: Divalproex Sodium 250 MG Tablet 1000 MG PO (08:54)
[2024-09-05] MEDS: PALIPERIDONE 3 MG TAB.ER.24 PO (08:54)
[2024-09-05] MEDS: Furosemide 40 MG/4 ML Vial IV (08:55)
[2024-09-05] MEDS: 0.9% Saline Lock 10 ML Syringe IV (08:55)
--- NOTE | 2024-09-05 09:09 | PN.HOSP_ITS ---
Reason for Visit Reason for Visit: Diagnoses Heart failure, unspecified (09/03/24) Other specified abnormal findings of blood chemistry (09/03/24) Subjective Subjective Feeling well. Objective Data Objective Data Vital Signs: Vital Signs Temp Pulse Resp BP Pulse Ox O2 Del Method O2 Flow Rate 36.5 C L 87 18 98/74 98 Room Air 2 09/05/24 08:48 09/05/24 08:48 09/05/24 08:48 09/05/24 08:48 09/05/24 08:48 09/05/24 09:04 09/03/24 16:32 Oxygen Flow Rate (L/min) 2 Oxygen Delivery Method Room Air Weight: 96.2 kg Body Mass Index (BMI) 28.7 Intake & Output: Intake and Output for Last 24 Hours 09/03/24 09/04/24 09/05/24 23:59 23:59 23:59 Intake Total 400 / 400 1200 / 1200 Output Total 1550 / 1600 1300 / 1300 250 / 250 Balance -1150 / -1200 -100 / -100 -250 / -250 Lab / Micro Data 09/04/24 06:18 09/05/24 09:40 Labs: Laboratory Results - last 24 hr 09/04/24 11:47: POC Glucose 251 H 09/04/24 17:20: POC Glucose 86 09/04/24 21:01: POC Glucose 103 09/05/24 06:22: POC Glucose 90 Radiography Diagnostic Testing: Radiology Impression Echocardiogram 09/03/24 16:14 Interpretation Summary Severe global LV systolic dysfunction. Estimated LVEF 20-25%. Stage I diastolic dysfunction. Mild global right ventricular systolic dysfunction. There is moderate biatrial dilatation. Mild (1+) mitral valve insufficiency. Moderate (2+) tricuspid valve insufficiency. Right ventricular systolic pressure estimated to be 39 mmHg. Mild (1+) aortic valve insufficiency. Ordering Physician: Jessica Davila Referring Physician: Fernando Reinoso Performed By: Fatmata White RDCS Physical Exam Const alert and no apparent distress HEENT head/scalp atraumatic and moist oral mucous membranes Resp normal respiratory effort, no retractions, no use of accessory muscles and clear to auscultation bilaterally Cardio regular rate, regular rhythm, S1 normal heart sound and S2 normal heart sound GI normal to inspection, nondistended, normoactive bowel sounds, soft to palpation, non-tender and non-distended Neuro Sensorium / Orientation: awake and alert Assessment & Plan Assessment/Plan (1) Heart failure: PLAN: Acute heart failure, suspect HFrEF given cardiomegaly on CXR echo shows an EF 20-25%. Stage I DD, Severe global LV dysfunction. Mild global RV dysfunction. Moderate biatrial dilation RVSP 39mmHg. No prior echos in our system. I pulled up [facility] and no medical records available other than this hospitalization. DC IV furosemide, start furosemide 40/d, carvedilol 3.125 BID, lisinopril 2.5/d, empagliflozin 10/d, spironolactone 25/d DW Dr. Ferrara, ok for patient to follow up outpatient with cardiology (2) Elevated troponin: PLAN: Minimal elevation. Doubt primary event, but rather demand ischemia from AECHF Echo as above PLAN: Plan Chronic conditions: * COPD: stable * DM2: SSI * schizophrenia: depakote, olanzapine, palperidone * h/o CVA: ASA, statin VTE prophylaxis: LMWH.
[2024-09-05] MEDS: Empagliflozin 10 MG Tablet PO (10:03)
[2024-09-05] MEDS: Spironolactone 25 MG Tablet PO (10:03)
[2024-09-05] MEDS: Acetaminophen 325 MG Tablet 650 MG PO (10:03)
[2024-09-05] MEDS: Lisinopril 2.5 MG Tablet PO (10:03)
[2024-09-05 10:40] LABS: Anion Gap 9 (5-15); BUN 27 mg/dL (4-19); BUN/Creat Ratio 22.3 RATIO (10-20); Calcium,Total 8.6 mg/dL (7.6-11.0); Chloride 110 mmol/L (98-108); EST Glomerular Filtration Rate 65 (>60); Estimated Creatinine Clearance 67.91 ml/min (50-250); Glucose 101 mg/dL (70-99); Potassium 3.9 mmol/L (3.3-5.1); Sodium Level 143 mmol/L (133-145)
[2024-09-05 11:25] LABS: Bedside Glucose 107 mg/dL (74-106)
--- NOTE | 2024-09-05 12:08 | DS.PCM_ITS ---
Providers Date of Admission: 09/03/24 Primary Care Physician: Dr. Chalo Richard MD Reason For Visit: NEW ONSET FOR CHF Diagnosis Discharge Diagnosis (1) Heart failure: Status: Acute Code(s): I50.9 - Heart failure, unspecified Plan: Acute heart failure, suspect HFrEF given cardiomegaly on CXR echo shows an EF 20-25%. Stage I DD, Severe global LV dysfunction. Mild global RV dysfunction. Moderate biatrial dilation RVSP 39mmHg. No prior echos in our system. I pulled up [facility] and no medical records available other than this hospitalization. DC IV furosemide, start furosemide 40/d, carvedilol 3.125 BID, lisinopril 2.5/d, empagliflozin 10/d, spironolactone 25/d DW gabby Roldan for patient to follow up outpatient with cardiology (2) Elevated troponin: Status: Acute Code(s): R79.89 - Other specified abnormal findings of blood chemistry Plan: Minimal elevation. Doubt primary event, but rather demand ischemia from AECHF Echo as above Plan Chronic conditions: * COPD: stable * DM2: SSI * schizophrenia: depakote, olanzapine, palperidone * h/o CVA: ASA, statin VTE prophylaxis: LMWH. Medications at Discharge Home Medications acetaminophen 325 mg tablet (Tylenol) 650 mg PO Q4H PRN fever or pain 09/03/24 albuterol sulfate 90 mcg/actuation aerosol inhaler 2 puff inhalation Q4H PRN sob 09/03/24 aluminum-magnesium hydroxide 200 mg-200 mg/5 mL oral suspension (MAG-AL) 30 ml PO Q6H PRN heartburn 09/03/24 aspirin 81 mg capsule 81 mg PO DAILY prophylaxis 09/03/24 atorvastatin 40 mg tablet (Lipitor) 40 mg PO DAILY cholesterol 09/03/24 calcium phosphate,dibasic 77 mg-vitamin D3 400 unit tablet 1 tab PO QWEEK abnormal labs 09/03/24 diphenhydramine HCl 25 mg tablet (Benadryl Allergy) 25 mg PO Q12H PRN PRN anxiety and insomnia 09/03/24 divalproex 500 mg tablet,delayed release (Depakote) 1,000 mg PO DAILY schizoaffective/bipolar 09/03/24 magnesium hydroxide 400 mg/5 mL oral suspension (Milk of Magnesia) 30 ml PO BID PRN constipation 09/03/24 olanzapine 20 mg tablet (Zyprexa) 20 mg PO BID schizophrenia 09/03/24 paliperidone palmitate 234 mg/1.5 mL intramuscular syringe (Invega Sustenna) 234 mg IM Q30D schizophrenia 09/03/24 pantoprazole 40 mg tablet,delayed release (Protonix) 40 mg PO QHS gerd 09/03/24 carvedilol 3.125 mg tablet 3.125 mg PO BIDCM #60 tabs 09/05/24 empagliflozin 10 mg tablet (Jardiance) 10 mg PO DAILY #30 tabs 09/05/24 furosemide 40 mg tablet 40 mg PO DAILY #30 tabs 09/05/24 lisinopril 2.5 mg tablet 2.5 mg PO DAILY #30 tabs 09/05/24 paliperidone 3 mg tablet,extended release 24 hr 3 mg PO DAILY #0 tabs 09/05/24 spironolactone 25 mg tablet 25 mg PO DAILY #30 tabs 09/05/24 Hospital Course Operations None Procedures 2-D Echocardiogram Summary of Care Provided Minutes Spent on Discharge: 32 Hospital Course: Patient presents with CHF exacerbation. Patient was started on furosemide and did well. Echocardiogram showed an EF of 20%. Discussed with Dr. Manriquez of cardiology who recommended goal-directed therapy as well as outpatient follow-up with cardiology. Patient is overall doing well will be discharged [facility]. Weight / BMI Weight Weight: 96.2 kg Body Mass Index (BMI) 28.7 ABG / Lab / Microbiology Data 09/04/24 06:18 09/05/24 09:40 Laboratory: Laboratory Results - last 24 hr 09/04/24 17:20: POC Glucose 86 09/04/24 21:01: POC Glucose 103 09/05/24 06:22: POC Glucose 90 09/05/24 09:40: Sodium 143, Potassium 3.9, Chloride 110 H, Carbon Dioxide 24.0, Anion Gap 9, BUN 27 H, Creatinine 1.20, Estim Creat Clear Calc 67.91, Est GFR (MDRD) Non-Af 65, BUN/Creatinine Ratio 22.3 H, Glucose 101 H, Calcium 8.6 09/05/24 11:05: POC Glucose 107 H Radiography Diagnostic Testing: Radiology Impression Echocardiogram 09/03/24 16:14 Interpretation Summary Severe global LV systolic dysfunction. Estimated LVEF 20-25%. Stage I diastolic dysfunction. Mild global right ventricular systolic dysfunction. There is moderate biatrial dilatation. Mild (1+) mitral valve insufficiency. Moderate (2+) tricuspid valve insufficiency. Right ventricular systolic pressure estimated to be 39 mmHg. Mild (1+) aortic valve insufficiency. Ordering Physician: Jessica Davila Referring Physician: Fernando Reinoso Performed By: Fatmata White RDCS D/C Instructions Discharge Diet: Low fat / Low cholesterol and - (1.5 liters) DC O2, CPAP, BIPAP Needs Home O2 Discharge instructions: No Meaningful Use Info Meaningful Use Meaningful Use Diagnoses (Choose all that apply): CHF CHF MELISSA/ARB ordered at discharge?: Yes Documented LVEF (%): 20 Ischemic Stroke Statin Dosing Therapy Reference: STATIN DOSE THERAPY REFERENCE: * Patients > 75 years receive moderate or high dose statin therapy. * Patients 75 years or YOUNGER should receive HIGH intensity statin dose unless contraindicated. You will be required to document reason for non-treatment if statin daily dose does not meet guidelines. HIGH DOSE STATIN THERAPY DAILY Atorvastatin > than or = to 40 mg Rosuvastatin > than or = to 20 mg Amlodipine + Atorvastatin > than or = to 2.5/40 mg Ezetimibe + Simvastatin 10/80 mg Simvastatin 80mg Discharge Plan Admission Admit Date/Time: 09/03/24 15:56 Primary Reason for Your Visit: heart failure. Attending Provider: Fernando Smith Primary Care Provider: Chalo Richard Consulting Providers: Jessica Dvaila Discharge Orders/Prescriptions Prescriptions: New furosemide 40 mg Tablet 40 mg PO DAILY Qty: 30 0RF spironolactone 25 mg Tablet 25 mg PO DAILY Qty: 30 0RF carvedilol 3.125 mg Tablet 3.125 mg PO BIDCM Qty: 60 0RF lisinopril 2.5 mg Tablet 2.5 mg PO DAILY Qty: 30 0RF paliperidone 3 mg Tablet Extended Release 24hr 3 mg PO DAILY Qty: 0 0RF Jardiance 10 mg Tablet 10 mg PO DAILY Qty: 30 0RF Continued aspirin 81 mg capsule 81 mg PO DAILY diphenhydramine HCl [Benadryl Allergy] 25 mg tablet 25 mg PO Q12H PRN PRN (Reason: anxiety and insomnia) divalproex [Depakote] 500 mg tablet,delayed release (DR/EC) 1,000 mg PO DAILY atorvastatin [Lipitor] 40 mg tablet 40 mg PO DAILY MAG-AL 200-200 mg/5 mL suspension 30 ml PO Q6H PRN (Reason: heartburn) magnesium hydroxide [Milk of Magnesia] 400 mg/5 mL suspension 30 ml PO BID PRN (Reason: constipation) pantoprazole [Protonix] 40 mg tablet,delayed release (DR/EC) 40 mg PO QHS acetaminophen [Tylenol] 325 mg tablet 650 mg PO Q4H PRN (Reason: fever or pain) calcium phos,dibas-vitamin D3 77-400 mg-unit tablet 1 tab PO QWEEK Patient Comments: every friday olanzapine [Zyprexa] 20 mg tablet 20 mg PO BID Invega Sustenna 234 mg/1.5 mL syringe 234 mg IM Q30D albuterol sulfate 90 mcg/actuation HFA aerosol inhaler 2 puff inhalation Q4H PRN (Reason: sob) Referrals / Follow Up: Chalo Richard MD [Primary Care Provider] - Within 2 Weeks [facility] [Provider Group] - Within 1 Month Disposition Disposition (needs filled in before D/C Order can be placed): NonSkilled NH/Intermed Care Charges/Coding Visit Charges Inpatient E&M: 88283 Disch Hosp >30min
--- NOTE | 2024-09-05 12:19 | PCM.TXEXTCAR ---
Diet Diet Order/Speech Therapy: 09/03/24 16:14 Diet: Cardiac - Heart Healthy Food consistency:: Regular Liquid Consistency:: Regular/Thin Routine Orders/Code Status Code Status: DNRCC-A (no intubation. ) DC O2, CPAP, BIPAP needs Home O2 Discharge instructions: No Therapies Weight Bearing: Full weight bearing Physical Therapy: Eval and Treat Occupational Therapy: Eval and Treat Problem/Diagnosis (1) Heart failure: Status: Acute Code(s): I50.9 - Heart failure, unspecified Plan: Acute heart failure, suspect HFrEF given cardiomegaly on CXR echo shows an EF 20-25%. Stage I DD, Severe global LV dysfunction. Mild global RV dysfunction. Moderate biatrial dilation RVSP 39mmHg. No prior echos in our system. I pulled up [facility] and no medical records available other than this hospitalization. DC IV furosemide, start furosemide 40/d, carvedilol 3.125 BID, lisinopril 2.5/d, empagliflozin 10/d, spironolactone 25/d DW gabby Roldan for patient to follow up outpatient with cardiology (2) Elevated troponin: Status: Acute Code(s): R79.89 - Other specified abnormal findings of blood chemistry Plan: Minimal elevation. Doubt primary event, but rather demand ischemia from AECHF Echo as above Plan Chronic conditions: COPD: stable DM2: SSI schizophrenia: depakote, olanzapine, palperidone h/o CVA: ASA, statin VTE prophylaxis: LMWH. Allergies/Procedures Done in Hospital Allergies No Known Allergies Allergy (Verified 09/03/24 11:29) Procedures: 2-D Echocardiogram Type of Care/Length of Stay Estimated LOS: More Than 30 Days Type of Care Needed: [facility]/Assisted Living Rehab Potential: Fair Prognosis: Good Additional Orders/Day of Discharge Day of Discharge: 09/05/24 Dietary and Speech Recommendations Dietitian Recommendations/Changes: Continue cardiac diet. If glucose level begin being elevated, recommend adding carbohydrate controlled restriction. Will monitor weight trends. Discharge Plan Admission Admit Date/Time: 09/03/24 15:56 Primary Reason for Your Visit: heart failure. Attending Provider: Fernando Smith Primary Care Provider: Chalo Richard Consulting Providers: Jessica Davila Discharge Orders/Prescriptions Prescriptions: New furosemide 40 mg Tablet 40 mg PO DAILY Qty: 30 0RF spironolactone 25 mg Tablet 25 mg PO DAILY Qty: 30 0RF carvedilol 3.125 mg Tablet 3.125 mg PO BIDCM Qty: 60 0RF lisinopril 2.5 mg Tablet 2.5 mg PO DAILY Qty: 30 0RF paliperidone 3 mg Tablet Extended Release 24hr 3 mg PO DAILY Qty: 0 0RF Jardiance 10 mg Tablet 10 mg PO DAILY Qty: 30 0RF Continued aspirin 81 mg capsule 81 mg PO DAILY diphenhydramine HCl [Benadryl Allergy] 25 mg tablet 25 mg PO Q12H PRN PRN (Reason: anxiety and insomnia) divalproex [Depakote] 500 mg tablet,delayed release (DR/EC) 1,000 mg PO DAILY atorvastatin [Lipitor] 40 mg tablet 40 mg PO DAILY MAG-AL 200-200 mg/5 mL suspension 30 ml PO Q6H PRN (Reason: heartburn) magnesium hydroxide [Milk of Magnesia] 400 mg/5 mL suspension 30 ml PO BID PRN (Reason: constipation) pantoprazole [Protonix] 40 mg tablet,delayed release (DR/EC) 40 mg PO QHS acetaminophen [Tylenol] 325 mg tablet 650 mg PO Q4H PRN (Reason: fever or pain) calcium phos,dibas-vitamin D3 77-400 mg-unit tablet 1 tab PO QWEEK Patient Comments: every friday olanzapine [Zyprexa] 20 mg tablet 20 mg PO BID Invega Sustenna 234 mg/1.5 mL syringe 234 mg IM Q30D albuterol sulfate 90 mcg/actuation HFA aerosol inhaler 2 puff inhalation Q4H PRN (Reason: sob) Referrals / Follow Up: [facility] [Provider Group] - Within 1 Month Chalo Richard MD [Primary Care Provider] - Within 2 Weeks Disposition Disposition (needs filled in before D/C Order can be placed): NonSkilled NH/Intermed Care
--- NOTE | 2024-09-05 13:49 | NURSING ---
Report called to Lainey at [facility] [phone]. Pt will be p/u in 30minutes.
== END 2024-09-05 14:24 | disposition intermediate care facility (04) | DRG 194 ==
LOC: ED 14:58 → PCU 15:17
PROVIDERS: Physician Assistant; Admitting Provider Internal Medicine; Emergency Provider Emergency Medicine; PCP Family Medicine; Referring Provider Emergency Medicine
DX: I11.0 Hypertensive heart disease with heart failure (principal); I24.89 Other forms of acute ischemic heart disease; J44.9 Chronic obstructive pulmonary disease, unspecified; F20.9 Schizophrenia, unspecified; E11.9 Type 2 diabetes mellitus without complications; I50.21 Acute systolic (congestive) heart failure; I69.392 Facial weakness following cerebral infarction; E78.5 Hyperlipidemia, unspecified; F17.210 Nicotine dependence, cigarettes, uncomplicated; K21.9 Gastro-esophageal reflux disease without esophagitis; F31.9 Bipolar disorder, unspecified; R09.02 Hypoxemia; Z79.82 Long term (current) use of aspirin; Z79.51 Long term (current) use of inhaled steroids; Z79.899 Other long term (current) drug therapy; R79.89 Other specified abnormal findings of blood chemistry
CPT/HCPCS: 36415; 51702; 71046; 80048; 80053; 80061; 80164; 81001; 82140; 82962; 83735; 83880; 84443; 84484; 85025; 93005; 93306; 97116; 97162; 97166; 97530; 97535; 99285; A4216; J1940